=== PATIENT | male | born 1925 | race Caucasian/White ===

== ENCOUNTER 2016-07-17 10:52 | Day surgery (SDC) | payer MEDICARE, OTHER ==
[2016-07-17] MEDS ORDERED: CYCLOPENTOLATE 1% OPHTH DROPS 2 ML OPTH ONE (11:20)
[2016-07-17] MEDS ORDERED: TROPICAMIDE 1% OPHTH 2 ML DROPS OPTH ONE (11:20)
[2016-07-17] MEDS ORDERED: KETOROLAC 0.45% OPHTH DROPS OPTH ONE (11:20)
[2016-07-17] MEDS ORDERED: LACTATED RINGERS 500 ML IV ONE (11:25)
[2016-07-17] MEDS ORDERED: LIDOCAINE-MPF 2% 5 ML VIAL IM ONE (11:45)
[2016-07-17] MEDS ORDERED: PROPOFOL 200 MG/20 ML VIAL IVP ONE (11:45)
[2016-07-17] MEDS ORDERED: MIDAZOLAM 2 MG/2 ML VIAL IVP ONE (11:45)
[2016-07-17] MEDS ORDERED: TETRACAINE 0.5% OPHTH DROPS 4 ML OPTH ONE (12:05)
[2016-07-17] MEDS ORDERED: levoFLOXacin 0.5% OPHTH DROPS 5 ML OPTH ONE (12:05)
[2016-07-17] MEDS ORDERED: EPINEPHrine 1 MG/ML AMP IO ONE (12:05)
[2016-07-17] MEDS ORDERED: CHONDR SULF/HYALURONATE SYRINGE IO ONE (12:05)
[2016-07-17] MEDS ORDERED: PROPARACAINE 0.5% OPHTH DROPS 15 ML OPTH ONE (12:05)
[2016-07-17] MEDS ORDERED: BSS/LIDOCAINE/EPINEPHRINE 1 ML SYRINGE IO ONE (12:05)
[2016-07-17] MEDS ORDERED: BRIMONIDINE 0.2% OPHTH DROPS 5 ML OPTH ONE (12:05)
== END 2016-07-17 10:53 | disposition home or self-care (01) ==
PROC: 08RJ3JZ Replacement of Right Lens with Synthetic Substitute, Percutaneous Approach (ICD-10-PCS; principal; 2016-07-17 12:15)
DX: H25.11 Age-related nuclear cataract, right eye (principal); I10 Essential (primary) hypertension; E11.9 Type 2 diabetes mellitus without complications
CPT/HCPCS: 66982; V2632